=== PATIENT | female | born 1970 | race American Indian/Alaskan Native ===

== ENCOUNTER 2018-08-04 09:48 | Emergency (ER) | payer SELFPAY ==
[2018-08-04 09:55] VITALS: BP 177/64
--- NOTE | 2018-08-04 10:39 | Emergency Department Report ---
ED General Adult HPI - General Chief complaint: Wound/Laceration Stated complaint: PAIN FROM SHINGLES Time Seen by Provider: 08/04/18 10:10 Source: patient Mode of arrival: Ambulatory Limitations: No Limitations - History of Present Illness Initial comments: Ms. Shane is a 48-year-old female with history of brain aneurysm, hypertension, diabetes and CVA who presents with several months of diffuse myalgia body pain. She has small pimbles on hers upper back. Seen by my colleague 2 months ago with left back pain. Seen recently at at [facility] treated for and diagnosed with shingles. No improvement in spite tramadol andacyclovir. She has had diffuse body pain with breast pain. She's had a mammogram. Shehas been evaluated by neurologist without definitive diagnosis. She has been paying [id number] for healthcare. She currently is attempting to obtain disability payments. -: Gradual, month(s) (several months) Location: back, upper extremity, lower extremity Quality: burning, stabbing Consistency: constant Improves with: none Worsens with: none Associated Symptoms: malaise - Related Data Previous Rx's Medication Instructions Recorded Last Taken Type Cyclobenzaprine [Flexeril] 10 mg PO QHS PRN #20 tablet 06/03/18 Unknown Rx Ibuprofen [Motrin] 800 mg PO Q8HR #30 tablet 06/03/18 Unknown Rx HYDROcodone/APAP 5-325 [Crosby 1 each PO Q6HR PRN #15 tablet 08/04/18 Unknown Rx 5/325] predniSONE [Deltasone] 3 tab PO QDAY 5 Days #15 tab 08/04/18 Unknown Rx Allergies Allergy/AdvReac Type Severity Reaction Status Date / Time No Known Allergies Allergy Verified 06/03/18 11:09 ED Review of Systems ROS: Stated complaint: PAIN FROM SHINGLES Other details as noted in HPI Comment: All other systems reviewed and negative Constitutional: malaise. denies: fever Respiratory: denies: cough Cardiovascular: denies: chest pain ED Past Medical Hx - Past Medical History Previous Medical History?: Yes Hx Hypertension: Yes Hx CVA: Yes (brain aneurysm 2008) Hx Diabetes: Yes (type 2) Additional medical history: HLD, - Surgical History Past Surgical History?: Yes Additional Surgical History: hysterectomy, brain aneurysm 2008 - Social History Smoking Status: Current Every Day Smoker Substance Use Type: None - Medications Home Medications: Home Medications Medication Instructions Recorded Confirmed Last Taken Type Cyclobenzaprine [Flexeril] 10 mg PO QHS PRN #20 tablet 06/03/18 Unknown Rx Ibuprofen [Motrin] 800 mg PO Q8HR #30 tablet 06/03/18 Unknown Rx HYDROcodone/APAP 5-325 [Crosby 1 each PO Q6HR PRN #15 tablet 08/04/18 Unknown Rx 5/325] predniSONE [Deltasone] 3 tab PO QDAY 5 Days #15 tab 08/04/18 Unknown Rx ED Physical Exam - General Limitations: No Limitations General appearance: alert, in no apparent distress - Head Head exam: Present: atraumatic, normocephalic - Eye Eye exam: Present: normal appearance - ENT ENT exam: Present: mucous membranes moist - Neck Neck exam: Present: normal inspection. Absent: tenderness, meningismus - Respiratory Respiratory exam: Present: normal lung sounds bilaterally. Absent: respiratory distress, wheezes, rales, rhonchi - Cardiovascular Cardiovascular Exam: Present: regular rate, normal rhythm. Absent: systolic murmur, diastolic murmur, rubs, gallop - GI/Abdominal GI/Abdominal exam: Present: soft, normal bowel sounds. Absent: distended, tenderness, guarding, rebound - Extremities Exam Extremities exam: Present: normal inspection - Back Exam Back exam: Present: normal inspection - Neurological Exam Neurological exam: Present: alert, oriented X3 - Psychiatric Psychiatric exam: Present: normal affect, normal mood - Skin Skin exam: Present: warm, dry, intact, normal color, other (small well-healed 3 pimples upper back). Absent: rash ED Course Vital Signs 08/04/18 09:53 Temperature 98.3 F Pulse Rate 109 H Respiratory 18 Rate Blood Pressure 177/64 O2 Sat by Pulse 100 Oximetry ED Medical Decision Making - Medical Decision Making Generalized pain throughout body centralized in the upper back. Shingles is a possibility. However upon examination of the rash, do not feel that this is indicative or typical of shingles. Differential diagnosis includes neurological entities such as multiple sclerosis. Lupus is also consideration. She's had several months of pain. Fibromyalgia is also a consideration. Strongly recommended follow-up with her PCP. I know this will be taxing considering she does not have any health insurance. Prescribed prednisone for possible viral syndrome such as shingles. Also provided prescription 15 tablets of Crosby Critical care attestation.: If time is entered above; I have spent that time in minutes in the direct care of this critically ill patient, excluding procedure time. ED Disposition Clinical Impression: Generalized pain Disposition: DC-01 TO HOME OR SELFCARE Is pt being admited?: No Does the pt Need Aspirin: No Condition: Stable Additional Instructions: Please speak with your neurologist and primary care physician for treatment options. Prescriptions: HYDROcodone/APAP 5-325 [Crosby 5/325] 1 each PO Q6HR PRN #15 tablet PRN Reason: Pain predniSONE [Deltasone] 3 tab PO QDAY 5 Days #15 tab Referrals: MORELIA DELEON DO [Primary Care Provider] - 3-5 Days [facility] [Outside] - ANA
[2018-08-04] MEDS ORDERED: DELTASONE PO ONE (10:40)
[2018-08-04] MEDS ORDERED: NORCO 5/325 PO ONE (10:40)
== END 2018-08-04 10:56 | disposition home or self-care (01) ==
LOC: ED 09:48
DX: M79.18 Myalgia, other site (principal); I10 Essential (primary) hypertension; E11.9 Type 2 diabetes mellitus without complications; F17.200 Nicotine dependence, unspecified, uncomplicated
CPT/HCPCS: 99282; J7512

== ENCOUNTER 2019-06-29 17:56 | Emergency (ER) | payer SELFPAY ==
[2019-06-29 18:36] VITALS: BP 175/61
[2019-06-29 20:35] LABS: Bilirubin,Urine NEG (Negative); Blood,Urine NEG (Negative); Color,Urine Straw (Yellow); Mucus,Urine FEW /HPF; Protein,Urine <15 mg/dL mg/dL (Negative); Urobilinogen,Urine < 2.0 mg/dL (<2.0)
[2019-06-29] MEDS ORDERED: SODIUM CHLORIDE 0.9% 1000 ML 1,000 ML IV ONE ×3 (21:26→23:20)
[2019-06-29 21:33] LABS: Basophils # (Auto) 0.1 K/mm3 (0.0-0.1); Basophils % (Auto) 0.7 % (0.0-1.8); Eosinophils % (Auto) 0.2 % (0.0-4.3); Hemoglobin 14.8 gm/dl (10.1-14.3); Lymphocytes # (Auto) 2.4 K/mm3 (1.2-5.4); Lymphocytes % (Auto) 26.2 % (13.4-35.0); Mean Corpuscular HGB Conc 34 % (30-34); Mean Corpuscular Volume 77 fl (79-97); Monocytes # (Auto) 0.6 K/mm3 (0.0-0.8); Monocytes % (Auto) 6.3 % (0.0-7.3); Platelet Count 219 K/mm3 (140-440)
[2019-06-29 21:34] LABS: Red Cell Distribution Width 20.8 % (13.2-15.2)
[2019-06-29 21:53] LABS: Alanine Aminotransferase 17 units/L (7-56); Albumin 4.6 g/dL (3.9-5); BUN/Creatinine Ratio 13; Blood Urea Nitrogen 10 mg/dL (7-17); Calcium 9.9 mg/dL (8.4-10.2); Hemolysis Index 16
--- NOTE | 2019-06-29 23:05 | Emergency Department Report ---
<DORIAN THOMAS - Last Filed: 07/20/19 01:08> ED General Adult HPI - General Chief complaint: Pain General Stated complaint: PAIN Time Seen by Provider: 06/29/19 21:25 - Related Data Previous Rx's Medication Instructions Recorded Last Taken Type Cyclobenzaprine [Flexeril] 10 mg PO QHS PRN #20 tablet 06/03/18 Unknown Rx Ibuprofen [Motrin] 800 mg PO Q8HR #30 tablet 06/03/18 Unknown Rx HYDROcodone/APAP 5-325 [Glade 1 each PO Q6HR PRN #15 tablet 08/04/18 Unknown Rx 5/325] predniSONE [Deltasone] 3 tab PO QDAY 5 Days #15 tab 08/04/18 Unknown Rx metFORMIN [Glucophage] 500 mg PO BID #60 tablet 06/30/19 Unknown Rx Allergies Allergy/AdvReac Type Severity Reaction Status Date / Time No Known Allergies Allergy Verified 06/03/18 11:09 ED Past Medical Hx - Medications Home Medications: Home Medications Medication Instructions Recorded Confirmed Last Taken Type Cyclobenzaprine [Flexeril] 10 mg PO QHS PRN #20 tablet 06/03/18 Unknown Rx Ibuprofen [Motrin] 800 mg PO Q8HR #30 tablet 06/03/18 Unknown Rx HYDROcodone/APAP 5-325 [Glade 1 each PO Q6HR PRN #15 tablet 08/04/18 Unknown Rx 5/325] predniSONE [Deltasone] 3 tab PO QDAY 5 Days #15 tab 08/04/18 Unknown Rx metFORMIN [Glucophage] 500 mg PO BID #60 tablet 06/30/19 Unknown Rx ED Medical Decision Making - Lab Data Result diagrams: 06/29/19 21:40 06/30/19 00:55 ED Disposition Clinical Impression: Hyperglycemia due to type 2 diabetes mellitus, Noncompliance with medications, Abdominal pain, Constipation Disposition: DC-01 TO HOME OR SELFCARE Condition: Stable Instructions: Diabetes Mellitus Type 2 in Adults (ED) Additional Instructions: Your CT scans shows that you have a moderate amount of stool in her colon. You need to start taking metformin 3 days after today. Increase her fluid intake avoid Gatorade sleep drink sodas iced tea Pepsi's. Increase your fiber intake. It's very important for you to follow-up with a primary care provider I have listed one below for your convenience. Prescriptions: metFORMIN [Glucophage] 500 mg PO BID #60 tablet Referrals: PRIMARY CAREMD [Primary Care Provider] - 3-5 Days GREG SIMMONS MD [Staff Physician] - 3-5 Days Forms: Work/School Release Form(ED) <NALDO GARCÍA - Last Filed: 07/20/19 01:54> ED General Adult HPI - General Source: patient Mode of arrival: Ambulatory Limitations: No Limitations - History of Present Illness Initial comments: 48-year-old female with history of brain aneurysm, hypertension, diabetes and CVA who presents with several months of diffuse myalgia body pain. Patient states that she has diabetic neuropathy and is constantly has pain in her abdomen and chest. Patient reports she has lost weight close to 100 pounds a year. Patient states that she recently lost her in 2017 and has been struggling to get health care. Patient currently has no insurance and has not been taking any medications for her diabetes. Patient complains of being thirsty dry mouth and increase urination. Location: abdomen Quality: burning, sharp Consistency: constant Improves with: none Worsens with: none Associated Symptoms: loss of appetite, malaise, other (weight loss). denies: cough, fever/chills, nausea/vomiting, shortness of breath Treatments Prior to Arrival: none ED Review of Systems ROS: Stated complaint: PAIN Other details as noted in HPI Comment: All other systems reviewed and negative ED Past Medical Hx - Past Medical History Previous Medical History?: Yes Hx Hypertension: Yes Hx CVA: Yes (brain aneurysm 2008) Hx Diabetes: Yes (type 2) Additional medical history: HLD, - Surgical History Past Surgical History?: Yes Additional Surgical History: hysterectomy, brain aneurysm 2008 - Social History Smoking Status: Current Every Day Smoker Substance Use Type: None ED Physical Exam - General Limitations: No Limitations General appearance: alert, in no apparent distress - Head Head exam: Present: atraumatic, normocephalic - Eye Eye exam: Present: normal appearance - ENT ENT exam: Present: mucous membranes moist - Neck Neck exam: Present: normal inspection, full ROM - Respiratory Respiratory exam: Present: normal lung sounds bilaterally. Absent: respiratory distress - Cardiovascular Cardiovascular Exam: Present: regular rate, normal rhythm. Absent: systolic murmur, diastolic murmur, rubs, gallop - GI/Abdominal GI/Abdominal exam: Present: soft, normal bowel sounds - Back Exam Back exam: Present: normal inspection - Neurological Exam Neurological exam: Present: alert, oriented X3 - Psychiatric Psychiatric exam: Present: depressed - Skin Skin exam: Present: warm, dry, intact, normal color. Absent: rash ED Course Vital Signs 06/29/19 18:33 Temperature 98.7 F Pulse Rate 109 H Respiratory 12 Rate Blood Pressure 175/61 O2 Sat by Pulse 100 Oximetry ED Medical Decision Making - Lab Data Result diagrams: 06/29/19 21:40 06/30/19 00:55 - Radiology Data Radiology results: report reviewed Patient: REJI LUCIA MR#: [id number] : 1970 Acct:[id number] Age/Sex: 49 / F ADM Date: 06/29/19 Loc: ED Attending Dr: Ordering Physician: EFRAIN WARREN Date of Service: 06/29/19 Procedure(s): CT abdomen pelvis w con Accession Number(s): [id number] cc: EFRAIN WARREN CT ABDOMEN AND PELVIS WITH CONTRAST INDICATION / CLINICAL INFORMATION: MAIN: abd pain and tenderness 100ml Omni 300. TECHNIQUE: Axial CT images were obtained through the abdomen and pelvis after 100 cc Omnipaque 300 milligrams percent IV contrast. All CT scans at this location are performed using CT dose reduction for ALARA by means of automated exposure control. COMPARISON: None available. FINDINGS: LOWER CHEST: No significant abnormality. LIVER: No significant abnormality. GALLBLADDER: No significant abnormality. BILE DUCTS: No significant abnormality. PANCREAS: No significant abnormality. SPLEEN: No significant abnormality. 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 LEFT KIDNEY and URETER: No significant abnormality. STOMACH and SMALL BOWEL: Diffuse fluid distended small bowel without evidence of air-fluid levels COLON: Moderate amount of feces is present in the colon APPENDIX: No significant abnormality. PERITONEUM: No free fluid. No free air. No fluid collection. LYMPH NODES: No significant adenopathy. AORTA and ARTERIES: Extensive atherosclerotic plaque abdominal aorta IVC and VEINS: No significant abnormality. URINARY BLADDER: No significant abnormality. REPRODUCTIVE ORGANS: No significant abnormality. ADDITIONAL FINDINGS: Surgical clips present left side of the pelvis SKELETAL SYSTEM: No significant abnormality. IMPRESSION: 1. Abnormal but nonspecific intestinal gas pattern 2. Right adrenal myelolipoma Signer Name: Zeyad Calix MD Signed: 06/30/2019 12:26 AM Workstation Name: [email or web address] Critical care attestation.: If time is entered above; I have spent that time in minutes in the direct care of this critically ill patient, excluding procedure time. ED Disposition Is pt being admited?: No Does the pt Need Aspirin: No
[2019-06-29 23:13] LABS: Bilirubin,Urine NEG (Negative); Blood,Urine NEG (Negative); Color,Urine Straw (Yellow); Mucus,Urine FEW /HPF; Protein,Urine <15 mg/dL mg/dL (Negative); Urobilinogen,Urine < 2.0 mg/dL (<2.0)
[2019-06-29] MEDS ORDERED: INSULIN REGULAR, HUMAN 100 UNITS/1 ML IV ONE (23:19)
--- NOTE | 2019-06-30 00:30 | Cat Scan Report ---
CT ABDOMEN AND PELVIS WITH CONTRAST INDICATION / CLINICAL INFORMATION: MAIN: abd pain and tenderness 100ml Omni 300. TECHNIQUE: Axial CT images were obtained through the abdomen and pelvis after 100 cc Omnipaque 300 milligrams pe rcent IV contrast. All CT scans at this location are performed using CT dose reduction for ALARA by means of automated exposure control. COMPARISON: None available. FINDINGS: LOWER CHEST: No significant abnormality. LIVER: No significant abnormality. GALLBLADDER: No significant abnormality. BILE DUCTS: No significant abnormality. PANCREAS: No significant abnormality. SPLEEN: No significant abnormality. 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 LEFT KIDNEY and URETER: No significant abnormality. STOMACH and SMALL BOWEL: Diffuse fluid distended small bowel without evidence of air-fluid levels COLON: Moderate amount of feces is present in the colon APPENDIX: No significant abnormality. PERITONEUM: No free fluid. No free air. No fluid collection. LYMPH NODES: No significant adenopathy. AORTA and ARTERIES: Extensive atherosclerotic plaque abdominal aorta IVC and VEINS: No significant abnormality. URINARY BLADDER: No significant abnormality. REPRODUCTIVE ORGANS: No significant abnormality. ADDITIONAL FINDINGS: Surgical clips present left side of the pelvis SKELETAL SYSTEM: No significant abnormality. IMPRESSION: 1. Abnormal but nonspecific intestinal gas pattern 2. Right adrenal myelolipoma Signer Name: Zeyad Calix MD Signed: 06/30/2019 12:26 AM Workstation Name: [email or web address]
[2019-06-30 02:03] LABS: BUN/Creatinine Ratio 15; Blood Urea Nitrogen 9 mg/dL (7-17); Calcium 8.2 mg/dL (8.4-10.2); Hemolysis Index 37
== END 2019-06-30 02:38 | disposition home or self-care (01) ==
LOC: ED 17:56
DX: E11.65 Type 2 diabetes mellitus with hyperglycemia (principal); I10 Essential (primary) hypertension; F17.200 Nicotine dependence, unspecified, uncomplicated; Z90.710 Acquired absence of both cervix and uterus; Z86.73 Personal history of transient ischemic attack (TIA), and cerebral infarction without residual deficits; Z79.899 Other long term (current) drug therapy
CPT/HCPCS: 36415; 74177; 80048; 80053; 81001; 82805; 82962; 85025; 96361; 96374; 99284; J7030; Q9967; J1815